=== PATIENT | female | born 1950 | race Hispanic/Latino ===

== ENCOUNTER 2022-11-09 08:59 | Inpatient (IN) | payer OTHER ==
[2022-11-09 09:53] LABS: Absolute Lymphocytes (CBC) 1.6 K/uL (0.7-4.9); Hematocrit 33.5 % (36.0-45.0); Lymphocytes % 23.7 % (15.3-44.8); MPV 7.2 fL (7.6-11.3); RBC Red Blood Cell Count 3.81 M/uL (3.86-4.86)
[2022-11-09 10:09] LABS: Potassium 4.2 mEq/L (3.5-5.1)
[2022-11-09] MEDS ORDERED: NA CHLORIDE 0.9% 1,000 ML ONE (10:18)
[2022-11-09] MEDS ORDERED: FENTANYL CITR 100 MCG/2 ML ONE (10:28)
[2022-11-09] MEDS ORDERED: propofoL 200 MG/20 ML VIAL IV ONE (10:28)
[2022-11-09] MEDS ORDERED: LIDOCAINE 2% MPF 5 ML VIAL ONE (10:29)
[2022-11-09] MEDS ORDERED: ONDANSETRON 4 MG/2 ML VIAL ONE (10:30)
[2022-11-09 10:55] LABS: SARS-CoV-2 Antigen Rapid Res Negative (Negative)
[2022-11-09] MEDS ORDERED: EPINEPHRINE/PF 1 MG/ML AMP ONE (11:24)
[2022-11-09] MEDS ORDERED: Phenylephrine HCl 10 MG/ML 1 ML VIAL ONE (12:25)
--- NOTE | 2022-11-09 12:30 | P.BOP ---
Preoperative diagnosis: right knee septic bursitis Postoperative diagnosis: same with probable infected hematoma Primary procedure: right knee bursectomtoy with hematoma evacuation I&D (sharp) Estimated blood loss: 20 ccs Anesthesia: General Complications: None Transferred to: Recovery Room Condition: Good
--- OUTSIDE RECORDS SUMMARY | 2022-11-09 14:22 | XMS REPORT | Continuity of Care Document ---
:1950 Author Organization [facility] t Address [address] [place] [address] [address] [place] [address] Care Team Providers Name Role Phone Seth Elia Wright Primary Care Physician EVIN CARREON Attending Clinician Unavailable Evin Carreon MD Attending Clinician Doctor Unassigned, [place] Attending Clinician Unavailable Porachel, [facility] Main Attending Clinician Unavailable EVIN CARREON Admitting Clinician Unavailable Evin Carreon MD Admitting Clinician Payers Payer Name Policy Type Policy Number Effective Date Expiration Date S torrie MEDICARE PART A [id number] 2017 \T\ B 00:00:00 KAVIN [id number] 2018 00:00:00 Problems This patient has no known problems. Allergies, Adverse Reactions, Alerts Allergy Allergy Status Severity Reaction(s) Onset Inactive Treating Comm ents Source Name Type Date Date Clinician NO KNOWN Drug Active Univers ALLERGIE Class ity of S [facility] Social History Social Habit Start Date Stop Date Quantity Comments Source Exposure to 2021-11-13 2021-11-23 Not sure University SARS-CoV-2 00:00:00 13:41:00 [facility] (event) [place] Tobacco use and 2021-10-05 2021-10-05 Never used Universit y of exposure 00:00:00 00:00:00 [facility] Tobacco Comment 2021-10-05 2021-10-05 smoker x 12 Universi ty of 00:00:00 00:00:00 years [facility] Sex Ass[birth year] Universit y of 00:00:00 00:00:00 [facility] Smoking Status Start Date Stop Date Source Former smoker 2021-10-05 00:00:00 2021-10-05 00:00:00 [facility] Medications Ordered Filled Start Stop Current Ordering Indication Dosage Frequency Signature Comments Components Source Medication Medication Date Date Medication? Clinician (SIG) Name Name sodium 2021- No PRN, Univers chloride 12-02 Starting ity of (NS) 16:13: 16:31 on Tue [place] injection 00 :41 1822 at [facility] joanna 1113, Branch Until Tue12/02/21 at 1131, Routine, Intra-op neomycin-po 2021- No PRN, Unive rs lymyxin-dex 12-02 Starting ity of amethasone 16:13: 16[place]31 [place] (MAXITROL[place] 00 :41 12/02/21 at Med ical 3.5 1113, Branch mg/g-10,000 Until Tue unit/g-0.1 12/02/21 at % 1131, ophthalmic Routine, ointment Intra-op water for 2021- No PRN, Univers irrigation 12-02 Starting ity of irrigation 15:55: 16:31 [place] solution 00 :41 18 at Medic al 1055, Branch Until Tue12/02/21 at 1131, Routine, Intra-op Hyaluronida 2021- No PRN, Unive rs se, Human 12-02 Starting ity o f Recomb. 15:52: 16:31 on Tue [place] (HYLENEX) 00 :41 1822 at [facility] joanna injection 1052, Branch Until Tue12/02/21 at 1131, Routine, Intra-op eye block 2021- No PRN, Univers syringe 11 12-02 Starting ity of mL 15:52: 16:31 on Tue [place] 00 :41 1822 at Medical 1052, Branch Until Tue12/02/21 at 1131, Intra-op EPINEPHrine 2021- No PRN, Unive rs 1:1,000 (1 12-02 Starting ity of mg/mL) 15:52: 16:31 on Tue [place] (ADRENALIN) 00 :41 1822 at Or dical injection 1052, Branch Until Tue12/02/21 at 1131, Routine, Intra-op chondroitin 2021- No PRN, Unive rs sulf-sod 12-02 Starting ity of hyaluronate 15:52: 16:31 on Wed Y[place]annes as (DUOVISC 00 :41 22 at Medic al VISCO 1052, Branch ELASTIC) Until Tue intraocular 12/02/21 at injection 1131, Routine, Intra-op dexamethaso 2021- No PRN, Unive rs ne 12-02 Starting ity of (DECADRON 15:51: 16:31 on Wed [place] PHOSPHATE) 00 :41 12/02/21 at [facility] ical injection 1051, Branch Until Tue12/02/21 at 1131, Routine, Intra-op ceFAZolin 2021- No PRN, Univers (ANCEF) 12-02 Starting ity of injection 15:51: 16:31 on Tue [place] 00 :41 1822 at Medical 1051, Branch Until Tue12/02/21 at 1131, LANNY, Intra-op carbachoL 2021- No PRN, Univers (MIOSTAT) 12-02 Starting ity o f 0.01 % 15:51: 16:31 on Tue [place] intraocular 00 :41 22 at Or dical injection 1051, Branch Until Tue12/02/21 at 1131, Routine, Intra-op balanced 2021- No PRN, Univers salt irrig 12-02 Starting ity of soln comb1 15:50: 16:31 on Wed [place] (BSS PLUS) 00 :41 22 at [facility] ical ophthalmic 1050, Branch solution Until Tue 500 mL bag 12/02/21 at 1131, Routine, Intra-op cyclopent 2021- No .5mL 0.5 mL, Univ ers 1%-tropic 12-02 Right Eye, ity of 1%-phenyl 14:15: 14:15 ONCE, 1 [place] 2.5%-ketor 00 :00 dose, On Medic al 0.5% Tue Branch (MYDRIATIC 12/02/21 at #5) 0915, ophthalmic Routine, solution DSU Pre-op syringe 0.5 mL lactated 2021-2021- No 1000mL at 42 Unive rs ringers IV 5-18 05-18 mL/hr, ity of infusion 14:15: 14:21 1,000 mL, Yohannes as 1,000 mL 00 :00 IV Medical Infusion, Branch ONCE, 1 dose, On Tue12/02/21 at 0915, Routine, DSU Pre-op cyclopent 2021- No .5mL 0.5 mL, Univ ers 1%-tropic 12-02-18 Right Eye, ity of 1%-phenyl 14:15: 14:15 ONCE, 1 [place] 2.5%-ketor 00 :00 dose, On Medic al 0.5% Tue Branch (MYDRIATIC 12/02/21 at #5) 15, ophthalmic Routine, solution DSU Pre-op syringe 0.5 mL lactated 0 2021- No 1000mL at 42 Unive rs ringers IV 5-18 05-18 mL/hr, ity of infusion 14:15: 14:21 1,000 mL, Yohannes as 1,000 mL 00 :00 IV Medical Infusion, Branch ONCE, 1 dose, On Tue12/02/21 at 0915, Routine, DSU Pre-op telmisartan 2021-0 Yes 20mg Take 20 mg Univers 20 mg 5-18 by mouth ity of tablet 11:47: daily. [address] metFORMIN 2021-0 Yes 1000mg Take 1,000 Univers 1,000 mg 5-18 mg by ity of tablet 11:47: mouth 2 [place] [address] (two) Medical times [place] daily with meals. aspirin 81 2-0 Yes 81mg Take 81 mg U nivers mg EC 5-18 by mouth ity of tablet 11:47: daily. [address] telmisartan 2021-0 Yes 20mg Take 20 mg Univers 20 mg 5-18 by mouth ity of tablet 11:47: daily. [address] metFORMIN 2021-0 Yes 1000mg Take 1,000 Univers 1,000 mg 5-18 mg by ity of tablet 11:47: mouth 2 [place] [address] (two) Medical times [place] daily with meals. aspirin 81 Yes 81mg Take 81 mg U nivers mg EC 5-18 by mouth ity of tablet 11:47: daily. [address] telmisartan Yes 20mg Take 20 mg Univers 20 mg 5-18 by mouth ity of tablet 11:47: daily. [address] metFORMIN Yes 1000mg Take 1,000 Univers 1,000 mg 5-18 mg by ity of tablet 11:47: mouth 2 [place] [address] (two) Medical times [place] daily with meals. aspirin 81 0 Yes 81mg Take 81 mg U nivers mg EC 5-18 by mouth ity of tablet 11:47: daily. [address] ondansetron 2021- No 4mg 4 mg, Slow Univers (ZOFRAN 10-07 IV Push, ity of (PF)) 13:44: 16:26 PRN, 1 [place] injection 4 27 :07 dose, Medical mg Starting Branch on Tue10/07/21 at 0844, Until Tue10/07/21 at 1126, Routine, Nausea and Vomiting (N/V), PACU neomycin-po 2021- No PRN, Unive rs lymyxin-dex 10-07 Starting ity of amethasone 13:40: 16:26 on Tuea s (MAXITROL) 00 :07 10/07/21 at [facility] ical 3.5 0840, Branch mg/g-10,000 Until Tue unit/g-0.1 10/07/21 at % 1126, ophthalmic Routine, ointment Intra-op dexamethaso 2021- No PRN, Unive rs ne 10-07 Starting ity of (DECADRON 13:38: 16:26 on Tue [place] PHOSPHATE) 00 :07 10/07/21 at Med ical injection 0838, Branch Until Tue10/07/21 at 1126, Routine, Intra-op ceFAZolin 2021- No PRN, Univers (ANCEF) 10-07 Starting ity of injection 13:38: 16:26 on Tue [place] 00 :07 10/07/21 at [facility] 0838, Branch Until Tue10/07/21 at 1126, LANNY, Intra-op carbachoL 2021- No PRN, Univers (MIOSTAT) 10-07 Starting ity o f 0.01 % 13:35: 16:26 on Tue [place] intraocular 00 :07 10/07/21 at Or dical injection 0835, Branch Until Tue10/07/21 at 1126, Routine, Intra-op sodium 2021- No PRN, Univers chloride 10-07 Starting ity of (NS) 13:33: 16:26 on Tue [place] injection 00 :07 10/07/21 at [facility] joanna 0833, Branch Until Tue10/07/21 at 1126, Routine, Intra-op DUOVISC 2021- No PRN, Univers (DUOVISC 10-07 Starting ity of VISCO 13:32: 16:26 on Tue [place] ELASTIC) 3 00 :07 10/07/21 at [facility] ical %-4 %(0.5 0832, Branch mL) 1 % Until Wed (0.55 mL) 10/07/21 at intraocular 1126, injection Routine, Intra-op EPINEPHrine 2021- No PRN, Unive rs 1:1,000 (1 10-07 Starting ity of mg/mL) 13:32: 16:26 on Tue [place] (ADRENALIN) 00 :07 10/07/21 at Or dical injection 0832, Branch Until Tue10/07/21 at 1126, Routine, Intra-op balanced 2021- No PRN, Univers salt irrig 10-07 Starting ity of soln comb1 13:31: 16:26 on Tue [place] (BSS PLUS) 00 :07 10/07/21 at Med ical ophthalmic 0831, Branch solution Until Wed 500 mL bag 10/07/21 at 1126, Routine, Intra-op water for 2021- No PRN, Univers irrigation 10-07 Starting ity of irrigation 13:22: 16:26 on Tue [place] solution 00 :07 10/07/21 at Medic al 0822, Branch Until Tue10/07/21 at 1126, Routine, Intra-op Hyaluronida 2021- No PRN, Unive rs se, Human 10-07 Starting ity o f Recomb. 13:20: 16:26 on Tue (HYLENEX) 00 :07 10/07/21 at Medi joanna injection 0820, Branch Until Tue10/07/21 at 1126, Routine, Intra-op eye block 2021- No PRN, Univers syringe 11 10-07 Starting ity of mL 13:20: 16:26 on Tue 00 :07 10/07/21 at Medical 0820, Branch Until Tue10/07/21 at 1126, Intra-op lactated 2021- No [facility] mL/hr, ity of infusion 12:00: 11:52 1,000 mL, Yohannes as 1,000 mL 00 :00 IV Medical Infusion, Branch ONCE, 1 dose, On Tue10/07/21 at 0700, Routine, DSU Pre-op cyclopent 2021- No .5mL 0.5 mL, Univ ers 1%-tropic 10-07 Left Eye, ity of 1%-phenyl 12:00: 11:47 ONCE, 1 [place] 2.5%-ketor 00 :00 dose, On Medic al 0.5% [facility] (MYDRIATIC 10/07/21 at #5) 0700, ophthalmic Routine, solution DSU Pre-op syringe 0.5 mL telmisartan Yes 20mg Take 20 mg Univers 20 mg 3-23 by mouth ity of tablet 09:21: daily. [address] metFORMIN Yes 1000mg Take 1,000 Univers 1,000 mg 3-23 mg by ity of tablet 09:21: mouth 2 [place] 04 (two) Medical times Branch daily with meals. glipiZIDE Yes 10mg Take 10 mg Un eliezer 10 mg 2-10 by mouth ity of tablet 00:00: daily with [place] breakfast. Medical Branch glipiZIDE 0 Yes 10mg Take 10 mg Un eliezer 10 mg 2-10 by mouth ity of tablet 00:00: daily with [place] breakfast. Medical Branch glipiZIDE Yes 10mg Take 10 mg Un eliezer 10 mg 2-10 by mouth ity of tablet 00:00: daily with [place] breakfast. Medical Branch glipiZIDE 2021-0 Yes 10mg Take 10 mg Un eliezer 10 mg 2-10 by mouth ity of tablet 00:00: daily with [place] breakfast. Medical Branch levothyroxi 2021-0 Yes Univer s ne 125 mcg 1-31 ity of tablet 00:00: [place] 00 Medical Branch levothyroxi 2021-0 Yes Univer s ne 125 mcg 1-31 ity of tablet 00:00: [place] 00 Medical Branch levothyroxi 2021-0 Yes Univer s ne 125 mcg 1-31 ity of tablet 00:00: [place] 00 Medical Branch levothyroxi 2021-0 Yes Univer s ne 125 mcg 1-31 ity of tablet 00:00: [place] 00 Medical Branch lovastatin 2021-0 Yes 10mg Take 10 mg U nivers 10 mg 1-24 by mouth ity of tablet 00:00: at [place] [address] bedtime. Medical Branch lovastatin 2021-0 Yes Univers 10 mg 1-24 ity of tablet 00:00: [place] 00 Medical Branch lovastatin 2021-0 Yes 10mg Take 10 mg U nivers 10 mg 1-24 by mouth ity of tablet 00:00: at [place] [address] bedtime. Medical Branch lovastatin 2021-0 Yes 10mg Take 10 mg U nivers 10 mg 1-24 by mouth ity of tablet 00:00: at [place] [address] bedtime. Medical Branch carvediloL 2021-0 Yes 12.5mg Take 12.5 Univers 12.5 mg 1-10 mg by ity of tablet 00:00: mouth 2 [place] (two) Medical times Branch daily with meals. carvediloL 2021-0 Yes 12.5mg Take 12.5 Univers 12.5 mg 1-10 mg by ity of tablet 00:00: mouth 2 [place] (two) Medical times Branch daily with meals. carvediloL 2022-0 Yes 12.5mg Take 12.5 Univers 12.5 mg 1-10 mg by ity of tablet 00:00: mouth 2 [place] (two) Medical times Branch daily with meals. carvediloL 2-0 Yes 12.5mg Take 12.5 Univers 12.5 mg 1-10 mg by ity of tablet 00:00: mouth 2 [place] [address] (two) Medical [facility] daily with meals. Immunizations Ordered Filled Immunization Date Status Comments [facility] Immunization Name Name SARS-COV-2 COVID-19 2021-08-03 Completed Unive rsity of MODERNA VACCINE 00:00:00 [facility] SARS-COV-2 COVID-19 2021-08-03 Completed Unive rsity of MODERNA VACCINE 00:00:00 [facility] SARS-COV-2 COVID-19 2021-08-03 Completed Unive rsity of MODERNA VACCINE 00:00:00 [facility] SARS-COV-2 COVID-19 2021-08-03 Completed Unive rsity of MODERNA VACCINE 00:00:00 [facility] SARS-COV-2 COVID-19 2020-10-24 Completed Unive rsity of MODERNA VACCINE 00:00:00 [facility] SARS-COV-2 COVID-19 2020-10-24 Completed Unive rsity of MODERNA VACCINE 00:00:00 [facility] SARS-COV-2 COVID-19 2020-10-24 Completed Unive rsity of MODERNA VACCINE 00:00:00 [facility] SARS-COV-2 COVID-19 2020-10-24 Completed Unive rsity of MODERNA VACCINE 00:00:00 [facility] SARS-COV-2 COVID-19 2020-09-23 Completed Unive rsity of MODERNA VACCINE 00:00:00 [facility] SARS-COV-2 COVID-19 2020-09-23 Completed Unive rsity of MODERNA VACCINE 00:00:00 [facility] SARS-COV-2 COVID-19 2020-09-23 Completed Unive rsity of MODERNA VACCINE 00:00:00 [facility] SARS-COV-2 COVID-19 2020-09-23 Completed Unive rsity of MODERNA VACCINE 00:00:00 [facility] Vital Signs Vital Name Observation Time Observation Value Comments Source Systolic blood 2021-12-02 16:36:00 111 mm[Hg] Univer sity of pressure [facility] Diastolic blood 2021-12-02 16:36:00 55 mm[Hg] Unive rsity of pressure [place] [facility] Heart rate 2021-12-02 16:36:00 68 /min Universi ty of [place] [facility] Respiratory rate 2021-12-02 16:36:00 14 /min Univ ersity of [place] [facility] Oxygen saturation in 2021-12-02 16:36:00 97 /min University of Arterial blood by [facility] joanna Pulse oximetry Branch Body temperature 2021-12-02 16:21:00 36.11 Miriam Univ ersity of [place] [facility] Body height 2021-11-19 13:37:00 149.9 cm Universi ty of [place] [facility] Body weight 2021-11-19 13:37:00 79.4 kg [facility]i ty [facility] [place] [facility] BMI 2021-11-19 13:37:00 35.34 kg/m2 [facility]i ty [facility] [place] [facility] Systolic blood 2021-12-02 14:14:00 97 mm[Hg] Univer sity of pressure [place] [facility] Diastolic blood 2021-12-02 14:14:00 60 mm[Hg] Unive rsity of pressure [place] [facility] Heart rate 2021-12-02 14:14:00 65 /min Universi ty [facility] [place] [facility] Body temperature 2021-12-02 14:14:00 36.67 Miriam Univ ersity of [place] [facility] Respiratory rate 2021-12-02 14:14:00 18 /min Univ ersity of [place] [facility] Oxygen saturation in 2021-12-02 14:14:00 98 /min University of Arterial blood by [facility] Pulse oximetry Branch Body height 2021-11-19 13:37:00 149.9 cm Universi ty of [place] [facility] Body weight 2021-11-19 13:37:00 79.4 kg Universi ty of [place] [facility] BMI 2021-11-19 13:37:00 35.34 kg/m2 Universi ty [facility] [place] [facility] Systolic blood 2021-10-07 11:39:00 128 mm[Hg] Univer sity of pressure [place] [facility] Diastolic blood 2021-10-07 11:39:00 93 mm[Hg] Unive rsity of pressure [place] [facility] Heart rate 2021-10-07 11:39:00 91 /min Universi ty [facility] [place] [facility] Body temperature 2021-10-07 11:39:00 36.44 Miriam Univ ersity of [place] [facility] Respiratory rate 2021-10-07 11:39:00 20 /min [facility] Oxygen saturation in 2021-10-07 11:39:00 100 /min [facility] Arterial blood by [facility] Pulse oximetry [place] Body height 2021-10-05 16:15:00 149.9 cm [facility] Body weight 2021-10-05 16:15:00 79.379 kg [facility] BMI 2021-10-05 16:15:00 35.35 kg/m2 [facility] Procedures Procedure Date / Time Performing Source Performed Clinician PHACOEMULSIFICATION OF 2021-12-02 Evin Carreon [facility] CATARACT WITH INTRAOCULAR 15:41:00 Medica l [place] LENS IMPLANT POCT GLUCOSE (AUTOMATED) 2021-12-02 Evin Carreon [facility] 14:18:00 [facility] POCT GLUCOSE (AUTOMATED) 2021-12-02 Evin Carreon [facility] 14:18:00 [facility] DAY SURGERY - ADC 2021-12-02 Doctor Craigigned, [facility] 05:01:00 [place] [facility] PHACOEMULSIFICATION OF 2021-10-07 Evin Carreon [facility] CATARACT WITH INTRAOCULAR 13:08:00 Medica l [place] LENS IMPLANT POCT GLUCOSE (AUTOMATED) 2021-10-07 Evin Carreon [facility] 11:43:00 [facility] NOTICE OF PRIVACY PRACTICES 2021-09-23 Doctor Unasslorenzo, [facility] 20:07:42 [place] [facility] CONSENT/REFUSAL FOR DIAGNOSIS 2021-09-23 Doctor Unassigned, [facility] AND TREATMENT 20:07:04 [place] [facility] ASSIGNMENT OF BENEFITS 2021-09-23 Doctor Unaval, [facility] 20:06:24 [place] [facility] CONSENT/REFUSAL FOR DIAGNOSIS 2021-09-23 Doctor Unassigned, [facility] AND TREATMENT 20:05:53 [place] [facility] CONSENT/REFUSAL FOR DIAGNOSIS 2021-09-23 Doctor Unassigned, [facility] AND TREATMENT 20:05:13 [place] [facility] ASSIGNMENT OF BENEFITS 2021-09-23 Doctor Unassigned, [facility] 20:04:43 [place] [facility] PHYSICIAN ORDERS 2021-09-23 Doctor Unasslorenzo, [facility] 06:01:00 [place] [facility] Encounters Start End Encounter Admission Attending Care Care Encounter Source Date/Time Date/Time Type Type Clinicians Facility Department ID 2021-12-02 2021-12-02 Outpatient R [facility] OPH [id number] Univers 09:02:00 11:47:00 EVIN ity [facility] 2021-12-02 2021-12-02 [facility] [id number] Univers 09:02:00 11:47:00 Encounter Evin MARISCAL [id number] ity of [facility] [id number] SUR[id number] [place] [id number] [place] 2021-12-02 2021-12-02 Surgery [facility] [id number] Univers 10:08:00 10:43:00 Evin Hermelinda DAVEY [id number] ity of [facility] [id number] SUR[place]ICAL [id number] [facility] 020 Branch 2021-12-02 2021-12-02 Orders Doctor BLEVINS [id number] Univers 00:00:00 00:00:00 Only Unassigned, [place] [id number] ity of [place] [facility] [id number] Yohannes as [id number] [address] 2021-10-07 2021-10-07 Outpatient R [facility] OPH [id number] Univers 06:25:00 09:18:00 EVIN ity [facility] 2021-10-07 2021-10-07 Outpatient R [facility] OPH [id number] Univers 06:25:00 09:18:00 EVIN ity [facility] 2021-10-07 2021-10-07 [facility] [id number] Univers 06:25:00 09:18:00 Encounter Evin Hermelinda DAVEY [id number] ity of [facility] [id number] SUR[place]ICAL [id number] [address] 2021-10-07 2021-10-07 [facility] [id number] Univers 07:30:00 08:11:00 Evin MARISCAL [id number] ity of [id number]GICAL [id number] [facility]20 [place] 2021-10-07 2021-10-07 Orders Doctor GEN [id number] Univers 00:00:00 00:00:00 Only Unassigned, [place] [id number] ity of [place] [facility] [id number] Yohannes as [id number] [facility] 009 [place] 2021-09-23 2021-09-23 Hvac Technician Residential Radha [facility] Main [facility] [id number] Univers 13:45:00 14:00:00 Visit Evin Carreon [id number] 0 ity of [facility] [id number] PROFESSIO [id number] Or dical NAL 353 [facility] 2021-09-23 2021-09-23 [facility] [id number] Univers 13:45:00 13:45:00 EVIN [facility] 2021-09-23 2021-09-23 [facility] [id number] Univers 13:45:00 13:45:00 [facility] Results Test Description Test Time Test Comments Results Result Comments Source POCT GLUCOSE (AUTOMATED) 2021-12-02 14:22:05 Test Item Value Reference Range Interpretation Comme nts POCT GLU (test code = 7787019128) 193 mg/dL 70-110 H Lab Interpretation (test code = 69414-9) Abnormal [facility] GLUCOSE (AUTOMATED)2021-12-02 14:22:05 Test Item Value Reference Range Interpretation Comments POCT GLU (test code = [id number]) 193 mg/dL 70-110 H Lab Interpretation (test code = Abnormal 51938-5) [facility] GLUCOSE(AGE >30DAYS)2021-12-02 14:18:00 Test Item Value Reference Range Interpretation Comments POCT Glu (age>30days) (test code = 193 mg/dL 70-110 A 3342) Lab Interpretation (test code = Abnormal 42343-7) [facility] GLUCOSE(AGE >30DAYS)2021-12-02 14:18:00 Test Item Value Reference Range Interpretation Comments POCT Glu (age>30days) (test code = 193 mg/dL 70-110 A 3342) Lab Interpretation (test code = Abnormal 83355-0) [facility] GLUCOSE (AUTOMATED)2021-10-07 11:53:09 Test Item Value Reference Range Interpretation Comments POCT GLU (test code = [id number]) 144 mg/dL 70-110 H Lab Interpretation (test code = Abnormal 38911-9) [facility] [id number] 11:43:00 Test Item Value Reference Range Interpretation Comments POCT Glu (age>30days) (test code = 144 mg/dL 70-110 A 3342) Lab Interpretation (test code = Abnormal 93413-2) [facility]
[2022-11-09 15:18] VITALS: BMI 32.7
[2022-11-09] MEDS ORDERED: VANCOMYCIN 1 GM in NA CHLORIDE 0.9% 250 ML IVPB SCH (18:58)
[2022-11-09] MEDS ORDERED: Levofloxacin500mg IV 500 MG/100 ML BAG IV SCH (19:00)
[2022-11-09] MEDS ORDERED: D50W 25 GM/50 ML SYRINGE IV PRN (19:00)
[2022-11-09] MEDS ORDERED: GLUCAGON 1 MG/VIAL IM PRN (19:00)
[2022-11-09] MEDS ORDERED: D10W 125 ML IV PRN (19:41)
[2022-11-09] MEDS ORDERED: VANCOMYCIN 1.25 GM in NA CHLORIDE 0.9% 250 ML IVPB SCH (20:00)
[2022-11-09] MEDS ORDERED: Levofloxacin 750mg IV 750 MG/150 ML BAG IV SCH (20:00)
[2022-11-09] MEDS ORDERED: VANCOMYCIN 1 GM/VIAL ONE (20:12)
[2022-11-09] MEDS ORDERED: NA CHLORIDE 0.9% 250 ML ONE (20:13)
[2022-11-09] MEDS ORDERED: VANCOMYCIN 500 MG/VIAL ONE (20:14)
[2022-11-09] MEDS: METFORMIN HCL 500 MG TAB PO SCH (20:16)
[2022-11-09] MEDS: carvediloL 6.25 MG TAB PO SCH (20:16)
[2022-11-09] MEDS: INSULIN -REGULAR HUMAN 50 UNIT/0.5 ML ML SQ SCH (20:17)
--- NOTE | 2022-11-09 21:22 | OP ---
Date of Procedure: 11/09/2022 Surgeon: Hany Roberto MD Preoperative Diagnosis: Right knee probable septic bursitis. Postoperative Diagnoses: Right knee consistent with septic bursitis with probable infected hematoma. Procedure: Right knee bursectomy with evacuation of hematoma and irrigation and debridement using [facility] instruments including scissors, knife, curette, and rongeur. Pathology: There was a pathology specimens sent as well as cultures. Estimated Blood Loss: 20 cc. Complications: There were no complications. Indications For Operation: Ms. Diane is a 72-year-old female who saw me yesterday in my office. Carlos Manuel oropeza has been seen by her primary care physician after an injury to her right knee. She has been placed on oral antibiotics for quite some time and although she did have initial improvements and it has no t significantly progressed, it still appears to be red, hot, swollen with an area of fluctuance. X-r ays demonstrated no fracture or dislocation or involvement of the bone. She did still have some pain anteriorly. Diagnosis is probable septic bursitis or at least infected hematoma with failure to imp rove with conservative measures and antibiotics. Risks, benefits, and alternatives of different meth ods of treatments have been discussed with her. I have also discussed this with her primary care rosaura yoder. At this time, we opted for irrigation and sharp debridement with bursectomy and evacuation o f hematoma present and probable packing this open with treatment of antibiotics and probable second-l ook irrigation and debridement and closure to follow up. She says she understands everything as pres ented and wishes to proceed. Description Of Procedure: The patient was taken to the operating room and placed in supine position. General anesthesia obtained by staff. Following this, a femoral block was then performed by Anesth esia staff. After this, a well-padded tourniquet was placed on superior right thigh. Right lower ex tremity was then prepped and draped in usual sterile fashion for an open wound. After this, a standa rd anterior incision was taken down carefully through skin, only meticulous hemostasis being maintain ed using Bovie electrocautery. This leads to fluid which appears to be consistent with old blood wit hout any jamia pus. This was then cultured and the superior portion of the bursa was then debrided. Also evacuating the area of hematoma using very careful dissection with scissors and a knife. After this, rongeur was used to debride some other areas, which appeared to be having some difficulties wi th healing and this was done until it appears very clean. It was then irrigated with 2 L of sterile saline using jet lavage. After this, it was again debrided for any material, which did not appear to be viable or had any change from normal. It was again irrigated with a 1.25 L of sterile saline usi ng the jet lavage. Meticulous hemostasis was obtained using Bovie and at the end of the case, all ma terial appeared to be very well vascularized and healthy with the exception of 1 small area in the an terior knee, which appeared to be consistent with necrotic skin. This area was gently ellipsed out u sing a knife. After this, pressure was held as the tourniquet was released in search for any unrecog nized bleeding. A small amount of Bovie electrocautery was then used for several small areas; howeve r, did not appear to be excessively bleeding and a sterile saline was then placed within the wound be d with ABDs, followed by Phani wrap and bulky dressing, and a knee immobilizer. The patient was then t aken to recovery room. /JORDY Voice ID: [id number] Report ID: [id number]
--- NOTE | 2022-11-10 01:19 | HP ---
Date of Admission: 11/09/2022 Chief Complaint: Right knee problem. History Of Present Illness: This is a 72-year-old very pleasant female patient who fell down and had a superficial abrasion of the right anterior knee skin area. The patient did not have any joint eff usion. Initially, she was started on Levaquin and subsequently Augmentin was added and she was respo nding very well until October 30, 2022 when she started to have some purulent type of discharge from th e right anterior knee abrasion. The patient was taking 2 different antibiotics Levaquin and subseque ntly Augmentin was added and she was improving, but when she saw this purulent discharge, she was ref erred to Dr. Roberto and I did discuss this with him. Dr. Roberto saw her yesterday and today he brought the patient to hospital and did surgery for this septic bursitis. When I saw her, she was i n the bed after her surgery. The patient denies any pain in her knee. Allergies: NO KNOWN ALLERGIES. Medications: 1.Augmentin 875 mg daily. 2.Levaquin 500 mg daily. 3.Omeprazole 40 mg p.o. daily. 4.Metamucil Fiber Gummies, takes 3 fiber gummies daily. 5.Lovastatin 10 mg daily in the evening. 6.Losartan 25 mg p.o. daily. 7.Tradjenta 5 mg p.o. daily. 8.Levothyroxine 125 mcg daily. 9.Glipizide 10 mg daily with breakfast. 10.Carvedilol 6.25 mg 2 times a day. Review of Systems: Musculoskeletal: As mentioned above. Dermatology: As mentioned above. All other systems reviewed and negative. Past Medical History: Significant for hypothyroidism, type 2 diabetes mellitus, hypertension, mixed hyperlipidemia, chronic systolic heart failure, diverticulosis, overactive bladder, and osteoarthriti s at multiple sites. Past Surgical History: Cholecystectomy and . Family History: Father , details unknown. Mother and had Alzheimer disease and diabetes. Brother has hypertension and osteoarthritis. Sister had stomach cancer and breast cancer. Social History: Prior history of smoking. Use of alcohol rarely. Physical Examination: Vital Signs: Temperature 97.6, pulse 73, respiratory rate 17, blood pressure 115/57, and oxygen satu ration 97%. Height 4 feet 11 inches, weight 162 pounds. General: Awake, alert, oriented, not in distress. HEENT: Head atraumatic, normocephalic. Conjunctivae nonerythematous. Sclerae white. Mouth, no thr ush or edema noted. Ears/Nose, no mass, lesion, discharge noted. Neck: Supple. No JVD, lymph nodes, bruit, thyromegaly noted. Lungs: Bilateral good equal air entry. Clear to auscultation. No rhonchi. No rales. Heart: Normal heart sounds, no murmur or gallop. Abdomen: Soft, bowel sounds normal. No guarding, rigidity, tenderness, mass, hepatosplenomegaly, dis tention, or bruit noted. Extremities: Right knee exam shows presence of immobilizer in place. The patient did ambulate today with physical therapy. Skin: No rash, ulcer, cellulitis. Lymphatics: No lymph node enlargement in neck, supraclavicular, infraclavicular region. Neuro: No focal neurological deficit. Chest: Unremarkable. External Genitalia: Deferred. Rectal: Deferred. Laboratory Data: Today white count 6.7, hemoglobin 11.3, and platelets 287. Sodium 137, potassium 4 .2, chloride 106, bicarb 29, BUN 17, creatinine 0.87, and glucose level 140. Impression: 1.Septic bursitis, right knee. 2.Anemia, unspecified. 3.Hypothyroidism. 4.Type 2 diabetes mellitus. 5.Hypertension. 6.Hyperlipidemia. 7.Chronic systolic heart failure. 8.Diverticulosis. 9.Osteoarthritis, multiple sites. 10.Overactive bladder. Plan: We will go ahead and admit the patient to hospital for further plan/recommendation. The patie nt was admitted to the hospital after surgical debridement of the right knee bursa. Dr. Roberto co ntacted me and he has packed this wound and he will do repeat surgery day after tomorrow to close thi s area. Appropriate cultures were sent. The patient was taking Levaquin and Augmentin at home and w hile in the hospital, we will do Levaquin and vancomycin. Follow up on culture results and specimen was sent by Dr. Roberto during surgery. For diabetes, we will manage with sliding scale insulin pe r order. Hypertension will be managed with antihypertensive medication per order. Monitor blood pre ssure and if necessary, adjust medications. I will see her tomorrow morning for followup. BHAVYA/MODL Voice ID: [id number]
--- NOTE | 2022-11-10 04:52 | EKG ---
Test Date: 2022-11-09 Test Time: 10:00:58 Human Resource Officer: GORGE MEASUREMENT RESULTS: Intervals: Rate: 78 KS: 178 QRSD: 156 QT: 442 QTc: 503 [place]: P: 65 KS: 178 QRS: -28 T: 157 INTERPRETIVE STATEMENTS: Normal sinus rhythm Left bundle branch block Abnormal ECG Compared to ECG 03/01/2016 17:39:17 No significant changes Electronically Signed On 11-10-22 04:51:58 CDT by Brandin Miles
[2022-11-10] MEDS: LEVOTHYROXINE SOD 0.125 MG TAB PO SCH (05:46)
[2022-11-10] MEDS: HYDROCODONE/APAP 5/325 MG TAB PO PRN ×5 (06:05→23:06)
[2022-11-10] MEDS: INSULIN -REGULAR HUMAN 50 UNIT/0.5 ML ML SQ SCH ×4 (07:30→20:44)
[2022-11-10] MEDS ORDERED: ENOXAPARIN 40 MG/0.4 ML SQ ONE (07:34)
[2022-11-10] MEDS ORDERED: Levofloxacin500mg IV 500 MG/100 ML BAG IV SCH (08:00)
[2022-11-10] MEDS: LOSARTAN POTASSIUM 50 MG TABLET PO SCH (09:00)
[2022-11-10] MEDS: carvediloL 6.25 MG TAB PO SCH ×2 (09:00→20:43)
[2022-11-10] MEDS: METFORMIN HCL 500 MG TAB PO SCH ×2 (09:06→20:44)
[2022-11-10] MEDS: ATORVASTATIN 10 MG TAB PO SCH (09:06)
[2022-11-10] MEDS ORDERED: ONDANSETRON 4 MG/2 ML VIAL IV PRN (09:49)
[2022-11-10] MEDS: VANCOMYCIN 1.25 GM in NA CHLORIDE 0.9% 250 ML IVPB SCH (15:55)
--- NOTE | 2022-11-10 23:25 | PN ---
Date of Progress Note: 11/10/2022 Subjective: The patient was seen this morning for followup. No new complaints or problems reported by her. Lying in bed, not in any distress. Objective: Vital Signs: Reviewed. HEENT: Unremarkable. Lungs: Clear to auscultation. Heart: Sounds normal. Abdomen: Soft. Bowel sounds normal. No guarding, rigidity, tenderness, or distention. Extremities: No leg edema. Impression: 1.Septic bursitis, right, status post debridement. 2.Hypertension. 3.Hyperlipidemia. 4.Diabetes mellitus. Plan: We will go ahead and continue vancomycin and Levaquin per order. We will give 1 dose of Loven ox 40 mg subcutaneous injection this morning for DVT prophylaxis. The patient will be kept n.p.o. af ter midnight for surgery tomorrow. I will see her tomorrow for followup. BHAVYA/MODL Voice ID: [id number] Report ID: [id number]
[2022-11-11] MEDS: LEVOTHYROXINE SOD 0.125 MG TAB PO SCH (04:35)
[2022-11-11] MEDS: HYDROCODONE/APAP 5/325 MG TAB PO PRN ×4 (04:35→22:41)
[2022-11-11] MEDS: INSULIN -REGULAR HUMAN 50 UNIT/0.5 ML ML SQ SCH ×4 (07:30→20:48)
[2022-11-11] MEDS: carvediloL 6.25 MG TAB PO SCH ×2 (08:03→20:47)
[2022-11-11] MEDS: LOSARTAN POTASSIUM 50 MG TABLET PO SCH (08:03)
[2022-11-11] MEDS: METFORMIN HCL 500 MG TAB PO SCH ×2 (08:03→20:47)
[2022-11-11] MEDS: ATORVASTATIN 10 MG TAB PO SCH (08:04)
[2022-11-11] MEDS: Levofloxacin500mg IV 500 MG/100 ML BAG IV SCH (08:42)
[2022-11-11] MEDS ORDERED: BUPIVACAINE 0.25% PF 30 ML VIAL ONE (10:49)
[2022-11-11] MEDS ORDERED: NA CHLORIDE 0.9% 1,000 ML ONE (11:19)
[2022-11-11] MEDS ORDERED: LIDOCAINE 2% MPF 5 ML VIAL ONE (11:35)
[2022-11-11] MEDS ORDERED: MIDAZOLAM HCL 2 MG/2 ML INJ ONE (11:35)
[2022-11-11] MEDS ORDERED: propofoL 200 MG/20 ML VIAL IV ONE (11:35)
[2022-11-11] MEDS ORDERED: FENTANYL CITR 100 MCG/2 ML ONE (11:35)
[2022-11-11] MEDS ORDERED: ONDANSETRON 4 MG/2 ML VIAL ONE (11:35)
[2022-11-11] MEDS ORDERED: Phenylephrine HCl 10 MG/ML 1 ML VIAL ONE (11:48)
[2022-11-11] MEDS ORDERED: NS 0.9% VIAL 20 ML ONE (11:48)
--- NOTE | 2022-11-11 12:24 | P.BOP ---
Preoperative diagnosis: right knee septic bursitis after I&D/Bursectomy Postoperative diagnosis: same Primary procedure: right knee I&D (sharp) with closure Estimated blood loss: 20 ccs Anesthesia: General Complications: None Transferred to: Recovery Room Condition: Good
[2022-11-11 14:31] VITALS: O2SAT 97
--- NOTE | 2022-11-11 14:36 | OP ---
Date of Procedure: 11/11/2022 Surgeon: Hany Roberto MD Preoperative Diagnosis: Right knee status post irrigation and debridement with bursectomy and evacua tion of infected hematoma, second-look. Procedure: Right knee irrigation and debridement, second-look and sharp debridement and closure. Estimated Blood Loss: 20 cc. Complications: There were no complications. Specimen: No pathology specimen sent. Indications For Operation: Ms. Diane is a 72-year-old female, who unfortunately has multiple medica l problems, who sustained an injury to her knee. This subsequently became infected when she presente d to my office with what appeared to be a septic prepatellar bursa and probable hematoma with some sm all area of necrosis of the skin. Her primary care physician had her appropriately on antibiotics; h owever, these had ceased to be helpful with continued pain and problems related to her knee. She 2 d ays ago underwent bursectomy, evacuation of hematoma, and irrigation and debridement of this area. T his was left packed open using a moistened Kerlix and she now arrives with a second-look for probable closure. Risks, benefits, and alternatives have been discussed with the patient. She states she un derstands things as presented and agrees to proceed. Description Of Procedure: The patient was taken to the operating room, placed in supine position. G eneral anesthesia was obtained by staff. Following this, her dressing was taken down. She does have an area on the medial aspect of the skin, essentially at the apex of the patella, which was somewhat dusky; however, the under surface appears to be well vascularized. The superior surface does appear to be quite tenuous. The knee was then prepped and draped in the usual sterile fashion for an open wound. After this, irrigation was performed, approximately 1 L, was then again inspected. There was found to be no areas of purulence. There were a few small areas of perhaps nonvascular tissue, but these were very small and these were removed using Weiner sutures. This was followed by an additional irrigation of another liter and then the wound was then inspected for any bleeding areas. No bleedin g areas were seen. The wound bed itself appears to be extremely healthy and clean. Decision was mad e to close. This was closed using heavy nylon sutures in a tensionless fashion. There was some conc devon about this area on the medial aspect of her knee; however, hopefully, this will proceed to healin g and no further skin was ellipsed. It should be noted that some small area of necrotic skin was ell ipsed at the first irrigation and debridement and do not have abundance of her remaining skin to appl y for closure; however, at the conclusion of the case, it was definitely not under tension and the sk in did appear to be well approximated. She was then placed in extremely well-padded sterile dressing and knee immobilizer. She was then taken to recovery room. PAUL Voice ID: [id number] Report ID: [id number]
[2022-11-11] MEDS: VANCOMYCIN 1.25 GM in NA CHLORIDE 0.9% 250 ML IVPB SCH (17:11)
[2022-11-11] MEDS ORDERED: Levofloxacin 750mg IV 750 MG/150 ML BAG IV SCH (21:00)
[2022-11-12] MEDS: LEVOTHYROXINE SOD 0.125 MG TAB PO SCH (05:41)
[2022-11-12] MEDS: HYDROCODONE/APAP 5/325 MG TAB PO PRN ×2 (05:41→12:34)
[2022-11-12] MEDS: INSULIN -REGULAR HUMAN 50 UNIT/0.5 ML ML SQ SCH ×2 (07:30→11:30)
[2022-11-12] MEDS: carvediloL 6.25 MG TAB PO SCH (08:15)
[2022-11-12] MEDS: LOSARTAN POTASSIUM 50 MG TABLET PO SCH (08:15)
[2022-11-12] MEDS: Levofloxacin500mg IV 500 MG/100 ML BAG IV SCH (08:15)
[2022-11-12] MEDS: ATORVASTATIN 10 MG TAB PO SCH (08:16)
[2022-11-12] MEDS: METFORMIN HCL 500 MG TAB PO SCH (08:16)
[2022-11-12 10:23] VITALS: BP 153/85; TEMP 97.9
--- NOTE | 2022-11-12 10:48 | PN ---
Date of Progress Note: 11/11/2022 Subjective: The patient was seen this morning for followup. No new complaints or problems reported by the patient. Lying in bed, not in distress. Denies any new complaints. Objective: Vital Signs: Reviewed. HEENT: Examination unremarkable. Lungs: Clear to auscultation. Heart: Sounds normal. Abdomen: Soft. Bowel sounds normal. No guarding, rigidity, tenderness, distention. Extremities: No leg edema. Impression: 1.Septic bursitis, right knee. 2.Hypertension. 3.Type 2 diabetes mellitus. 4.Chronic systolic heart failure. Plan: We will go ahead and continue current antibiotics. During the course of day today, the patien t had surgery done by Dr. Roberto and he was able to perform closure of the wound from the previous surgery 2 days ago. He did call me and informed me that from his point of view, the patient can be discharged either today or tomorrow and I will plan to discharge her tomorrow. Meanwhile, we will co ntinue antibiotics, pain medication per order. Dr. Roberto wants to see her at his office for 2 we eks, and he has advised for patient to continue to use knee immobilizer all the time and weightbearin g as tolerated. I will see her tomorrow for followup and possible discharge tomorrow. BHAVYA/MODL Voice ID: [id number] Report ID: [id number]
[2022-11-12] MEDS ORDERED: VANCOMYCIN 1.5 GM in NA CHLORIDE 0.9% 500 ML IVPB SCH (17:00)
--- NOTE | 2022-11-12 20:10 | PN ---
Date of Progress Note: 11/12/2022 Subjective: The patient was seen this morning for followup. No new complaints or problems reported by the patient. She was lying in bed, not in any distress. She is having increased pain in her righ t knee area after this last surgery yesterday and it is controlled with current pain medication. Objective: Vital Signs: Reviewed. HEENT: Unremarkable. Lungs: Clear to auscultation. Heart: Sounds normal. Abdomen: Soft. Bowel sounds normal. No guarding, rigidity, tenderness, or distention. Extremities: No leg edema. Impression: 1.Septic bursitis, right knee. 2.Chronic systolic heart failure. 3.Hypertension. 4.Type 2 diabetes mellitus. Plan: We will continue current antibiotics. Continue current pain medication. Physical Therapy to work with the patient and ambulate the patient. Depending on how she does with therapy, our plan is to discharge her to go home today if possible. Details were discussed with the patient. BHAVYA/MODL Voice ID: [id number] Report ID: [id number]
== END 2022-11-12 18:44 | disposition home or self-care (01) | DRG 501 ==
LOC: OR 08:59 → 4TH 12:59
PROVIDERS: ADMIT Orthopaedic Surgery; ATTEND Orthopaedic Surgery
PROC: 0MCN0ZZ Extirpation of Matter from Right Knee Bursa and Ligament, Open Approach (ICD-10-PCS; 2022-11-09)
PROC: 0MBN0ZZ Excision of Right Knee Bursa and Ligament, Open Approach (ICD-10-PCS; principal; 2022-11-09 11:30)
PROC: 0JDN0ZZ Extraction of Right Lower Leg Subcutaneous Tissue and Fascia, Open Approach (ICD-10-PCS; 2022-11-11)
DX: M71.561 Other bursitis, not elsewhere classified, right knee (principal); I50.22 Chronic systolic (congestive) heart failure; I11.0 Hypertensive heart disease with heart failure; E03.9 Hypothyroidism, unspecified; E11.9 Type 2 diabetes mellitus without complications; D64.9 Anemia, unspecified; N32.81 Overactive bladder; E78.2 Mixed hyperlipidemia; M19.09 Primary osteoarthritis, other specified site; K57.90 Diverticulosis of intestine, part unspecified, without perforation or abscess without bleeding; S80.01XA Contusion of right knee, initial encounter; Z90.49 Acquired absence of other specified parts of digestive tract; Z20.822 Contact with and (suspected) exposure to COVID-19; W18.30XA Fall on same level, unspecified, initial encounter
CPT/HCPCS: 36415; 80048; 80202; 82565; 82947; 85025; 87070; 87075; 87205; 87811; 88304; 88305; 93005; 97110; 97116; 97161; 97530; A4216; J0171; J1650; J2001; J2250; J2370; J2405; J2704; J3010; J7030; J7040; J7050